=== PATIENT | female | born 1975 | race Caucasian/White ===

== ENCOUNTER 2018-07-17 07:49 | Day surgery (SDC) | payer BC ==
[~2018-07-17 07:49] MED LIST: Buffered Lidocaine 1% SYRIN* 1 ML/SYRINGE INTRADERM ONE; Dexamethasone IV* 4 MG/ML 1 ML (4 MG) IV SLOW PU ONE; Famotidine IV* 10 MG/ML 2 ML (20 mg) IV ONE; Lactated Ringers 1000 ML Bag* 1,000 ML IV SCH
[2018-07-17] MEDS ORDERED: Famotidine IV* 10 MG/ML 2 ML (20 mg) ONE (08:09)
[2018-07-17] MEDS ORDERED: Dexamethasone IV* 4 MG/ML 1 ML (4 MG) ONE (08:09)
[2018-07-17] MEDS ORDERED: Buffered Lidocaine 1% SYRIN* 1 ML/SYRINGE ONE (08:10)
[2018-07-17] MEDS ORDERED: Midazolam* 1 MG/ML 2 ML VIAL (2 MG) ONE (08:45)
[2018-07-17] MEDS ORDERED: fentaNYL* 50 MCG/ML 2 ML VIAL (100 MCG VIAL) ONE ×2 (08:45→10:09)
[2018-07-17] MEDS ORDERED: Propofol* 10 MG/ML 20 ML BTL ONE (08:46)
[2018-07-17] MEDS ORDERED: Silver Nitrate/Potassium Nitr* 1 EA STICK ONE (09:26)
[2018-07-17] MEDS ORDERED: fentaNYL* 50 MCG/ML 2 ML VIAL (100 MCG VIAL) IV PRN (09:47)
[2018-07-17] MEDS ORDERED: Naloxone* 0.4 MG/ML 1 ML VIAL IV PRN (09:47)
[2018-07-17] MEDS ORDERED: Ondansetron INJ* 2 MG/ML VIAL IV PRN (09:47)
[2018-07-17 10:07] VITALS: BP 131/82
[2018-07-17] MEDS ORDERED: Ibuprofen TAB* 600 MG ONE (10:09)
--- NOTE | 2018-07-17 13:49 | OP ---
DATE OF OPERATION: 07/17/18 - [facility] DATE OF : 75 SURGEON: Pipe Euceda M.D. ANESTHESIA: General endotracheal tube. PRE-OP DIAGNOSIS: Dysfunctional uterine bleeding. POST-OP DIAGNOSIS: Dysfunctional uterine bleeding. OPERATIVE PROCEDURE: D and C, hysteroscopy, endometrial ablation. ESTIMATED BLOOD LOSS: Minimal. SPECIMEN: Includes endometrium. FINDINGS: On exam under anesthesia, the uterus was midposition, sounded to 9 cm. The hysteroscopy showed a normal cavity just enlarged, cervix, vagina wall appeared normal. DESCRIPTION OF PROCEDURE: The patient identified, procedure identified as D and C, hysteroscopy, endometrial ablation. The patient was taken to the operating room, prepped and draped in the usual fashion in the dorsal lithotomy position under general anesthesia. Two single-tooth tenaculums were placed on the anterior lip of the cervix. The cervix was sounded to 9 cm. The cervical length was found to be 3.5 on dilation, making the cavity length of 5.5. Hysteroscope inserted. The above findings were noted. The NovaSure device was opened. The array was checked. The sharp curette was inserted and sharp curettage was performed with good sampling. The NovaSure device was placed within the uterine cavity. The CO2 perforation test was performed at a cavity width of 4.5 and then the NovaSure device passed the cavity assessment, power setting of 136. The NovaSure device was enabled and NovaSure ablation took place for 1 minute 11 seconds. At the end of the procedure, device was removed and the hysteroscope was inserted and a good ablation was noted. No perforations or abnormalities were noted at this point. All instruments were removed from the vagina. The tenaculum sites were cauterized using silver nitrate and the patient returned to recovery room in stable condition. [id number]/[facility] #: [id number] [facility]
== END 2018-07-17 10:51 | disposition home or self-care (01) ==
LOC: OR 07:49
PROVIDERS: ATTEND Obstetrics & Gynecology
DX: N93.8 Other specified abnormal uterine and vaginal bleeding (principal); N84.0 Polyp of corpus uteri; R00.2 Palpitations; J45.909 Unspecified asthma, uncomplicated; E03.9 Hypothyroidism, unspecified; F41.8 Other specified anxiety disorders; D64.9 Anemia, unspecified
CPT/HCPCS: 81025; 88305; A9270-GY; J1100; J2250; J2704; J3010